=== PATIENT | female | born 1995 | race Caucasian/White ===

== ENCOUNTER 2018-07-31 03:00 | Emergency (ER) | payer BC, OTHER ==
[2018-07-31] MEDS ORDERED: ONDANSETRON HCL IV 4 MG/2 ML VIAL IV ONE (03:17)
[2018-07-31] MEDS ORDERED: FAMOTIDINE IV 20 MG/2 ML VIAL IVP ONE (03:17)
[2018-07-31] MEDS ORDERED: 0.9 % SODIUM CHLORIDE 1,000 ML BAG IV ONE ×2 (03:17→05:20)
--- NOTE | 2018-07-31 03:24 | Emergency Department Record ---
History of Present Illness - General Chief Complaint: Chest Pain Stated Complaint: CHEST PAIN Time Seen by Provider: 07/31/18 03:11 Source: Patient Mode of Arrival: Ambulatory Limitations: No limitations - History of Present Illness Initial Comments: The patient is here due to the acute onset of upper abdominal pain about 3 hours ago. The pain is sharp and stabbing and is associated with significant nausea and vomiting. She has vomited 4 or 5 times with it. The last episode was associated with possible coffee ground emesis. She does state the pain in the upper abdomen is radiating up into her chest at times and causing significant dyspnea at times. She has a long hx of similar problems and has these issues every 3-4 months which usually land her in the ER. She has been told she has a gastric emptying issue which is causing the pain. She has no hx of any abdominal surgeries, melena, BRBPR, and has had a normal LMP. MD Complaint: Other Onset/Timin -: Hour(s) Onset: After eating, During rest Pain Location: Substernal, Epigastric Severity: Moderate Severity scale (1-10): 8 Quality: Tightness Consistency: Constant, Intermittent Improves With: Nothing Worsens With: Movement Other Symptoms: Fever Treatments Prior to Arrival: None - Related Data Previous Rx's Medication Instructions Recorded Ondansetron [Zofran Odt] 4 mg SL .Q4-6H PRN #12 tab.rapdis 07/31/18 Allergies Allergy/AdvReac Type Severity Reaction Status Date / Time codeine Allergy Intermediate RASH Verified 07/31/18 04:04 acetaminophen [From Percocet] AdvReac VOMITING Verified 07/31/18 04:04 hydrocodone [From Vicodin] AdvReac VOMITING Verified 07/31/18 04:04 morphine AdvReac VOMITING Verified 07/31/18 04:04 oxycodone [From Percocet] AdvReac VOMITING Verified 07/31/18 04:04 Travel Screening - Travel/Exposure Within Last 30 Days Have you traveled within the last 30 days?: No - Travel/Exposure Within Last Year Have you traveled outside the [place] in the last year?: No - Additonal Travel Details Have you been exposed to anyone with a communicable illness?: No - Travel Symptoms Symptom Screening: None Review of Systems Constitutional: Denies: Chills, Fever Eyes: Denies: Eye discharge ENT: Denies: Congestion Respiratory: Denies: Cough, Dyspnea Past Medical History - SOCIAL HISTORY Smoking Status: Current every day smoker Alcohol Use: None Drug Use: Heavy Drug Use Detail:: Marijuana - RESPIRATORY Hx Respiratory Disorders: No - CARDIOVASCULAR Hx Cardio Disorders: No - NEURO Hx Neuro Disorders: No - GI Hx GI Disorders: Yes Comment:: rapid emptying - Hx Genitourinary Disorders: No - ENDOCRINE Hx Endocrine Disorders: No - MUSCULOSKELETAL Hx Musculoskeletal Disorders: No - PSYCH Hx Psych Problems: No - HEMATOLOGY/ONCOLOGY Hx Hematology/Oncology Disorders: No Family Medical History Any Significant Family History?: No Physical Exam - General General Appearance: Alert, Oriented x3, Cooperative, No acute distress - Head Head exam: Atraumatic, Normocephalic, Normal inspection - Eye Eye exam: Normal appearance, PERRL - Neck Neck exam: Normal inspection, Full ROM. negative: Tenderness - Respiratory Respiratory exam: Normal lung sounds bilaterally. negative: Respiratory distress - Cardiovascular Cardiovascular Exam: Regular rate, Normal rhythm, Normal heart sounds. negative : Diastolic murmur, Systolic murmur - GI/Abdominal GI/Abdominal exam: Soft, Normal bowel sounds, Tenderness (There is significant upper abdominal tenderness.). negative: Rebound, Rigid - Extremities Extremities exam: Normal inspection, Full ROM, Normal capillary refill. negative: Tenderness Course Vital Signs 07/31/18 03:02 Temperature 99.4 F Pulse Rate 110 H Respiratory 16 Rate Blood Pressure 116/66 Pulse Ox 99 - Reevaluation(s) Reevaluation #1: The patient is doing a lot better at this time. Her pain is down to a 2 and her nausea much improved. 07/31/18 03:47 Reevaluation #2: The patient is doing a lot better at this time. She is still mildly nauseated but her pain is again down to a 2 and only mildly located in the epigastric area. On exam she does still have mild epigastric tenderness to palpation. 07/31/18 04:08 Reevaluation #3: The patient is doing a lot better at this time. She was sleeping when I entered the room and denies any significant pain presently. There presently is no CP, SOB, pleuritic pain, back pain or AP. The nausea is much improved but still present mildly. She is able to get up and walk with no pain or discomfort and does feel comfortable going home. She is to only have clear liquids for 12 hours then to slowly advance her diet. She is to return to the ER for any worsening symptoms. I also did discuss the mildly elevated liver enzymes and the need for F/U. 07/31/18 05:14 07/31/18 05:21 Medical Decision Making - Data Complexity MDM Data: Labs Ordered and/or Reviewed, X-Ray Ordered and/or Reviewed, EKG Ordered and/or Reviewed - Lab Data Result diagrams: 07/31/18 03:20 07/31/18 03:20 - EKG Data -: EKG Interpreted by Me EKG: No Acute Changes, Normal EKG - Radiology Data Radiology results: Report reviewed (CT: Neg for acute changes. CXR: Neg.) Disposition Disposition: Discharge Clinical Impression: Gastroparesis Disposition: Home, Self-Care Condition: (2) Stable Instructions: Acute Nausea and Vomiting (ED) Additional Instructions: Please only have clear liquids for 12 hours then slowly advance your diet. Use the Zofran for nausea. Please see your doctor next week for recheck. Return to the ER for any worsening symptoms, pain, fever, or vomiting. Prescriptions: Ondansetron [Zofran Odt] 4 mg SL .Q4-6H PRN #12 tab.rapdis PRN Reason: Nausea Forms: Patient Portal Access Time of Disposition: 05:17 Quality - Quality Measures Quality Measures: N/A - Blood Pressure Screening View Details: Yes Does Patient Have Any of the Following: No Blood Pressure Classification: Normal BP Reading Systolic Measurement: 118 Diastolic Measurement: 68 Screening for High Blood Pressure: < Normal BP, F/U Not Required > [G8783]
[2018-07-31 03:33] LABS: HEMATOCRIT 45.7 % (35.0-47.0); HEMOGLOBIN 15.1 gm/dl (11.6-16.0); MEAN CELL VOLUME 87.2 fl (81-97); MEAN CORPUSCULAR HEMOGLOBIN 28.8 pg (27-33); MEAN PLATELET VOLUME 11.5 fl (7.4-10.4); PLATELET COUNT 195 K/uL (130-400); RED BLOOD COUNT 5.24 M/uL (3.80-5.40); RED CELL DISTRIBUTION WIDTH 14.4 % (11.5-14.5); WHITE BLOOD COUNT W/O DIFF 15.6 K/uL (4.2-12.2)
[2018-07-31 03:42] LABS: BLOOD UREA NITROGEN 18 mg/dL (6-20); CREATININE 0.8 mg/dL (0.5-0.9); EST GLOMERULAR FILTRATION RATE > 60 mL/min
[2018-07-31 03:43] LABS: TOTAL PROTEIN 6.6 g/dL (6.6-8.7)
[2018-07-31 03:45] LABS: GLUCOSE,RANDOM 101 mg/dL (74-109)
[2018-07-31] MEDS ORDERED: MAGNESIUM HYDROXIDE/AL HYDROX 30 ML, LIDOCAINE VISC 2% 15ML 15 ML PO ONE ×2 (03:46)
[2018-07-31 03:47] LABS: ALT/SGPT 61 U/L (<33)
[2018-07-31 03:48] LABS: ALBUMIN 4.3 g/dL (4.0-5.0); ALKALINE PHOSPHATASE 58 U/L (35-104); AST/SGOT 62 U/L (10.0-35.0); LIPASE 24 U/L (13-60)
[2018-07-31 03:53] LABS: BILIRUBIN,DIRECT < 0.2 mg/dL (0-0.3)
[2018-07-31] MEDS ORDERED: ONDANSETRON HCL IV 4 MG/2 ML VIAL IVP ONE (04:03)
[2018-07-31 04:12] LABS: ANISOCYTOSIS 1+; PLATELET ESTIMATE NORMAL (NORMAL)
[2018-07-31 04:41] LABS: AMPHETAMINE SCREEN URINE NOT DETECTED; BARBITURATE SCREEN URINE NOT DETECTED; BENZODIAZEPINE SCREEN URINE NOT DETECTED; COCAINE SCREEN URINE NOT DETECTED; METHADONE SCREEN URINE NOT DETECTED; METHAMPHETAMINE SCREEN NOT DETECTED; OPIATE SCREEN URINE NOT DETECTED; OXYCODONE SCREEN URINE NOT DETECTED; PHENCYCLIDINE SCREEN URINE NOT DETECTED; PROPOXYPHENE SCREEN URINE NOT DETECTED; THC SCREEN URINE DETECTED; TRICYCLIC ANTIDEPRESSANT SCRN NOT DETECTED
--- NOTE | 2018-07-31 19:56 | RADIOLOGY REPORT ---
EXAM: CHEST 2 VIEWS HISTORY: DIFFICULTY IN BREATHING. TECHNIQUE: Frontal and lateral views of the chest were performed. FINDINGS: Heart size is normal. No pulmonary vascular congestion. No infiltrate or pleural effusion. The osseous structures are normal. IMPRESSION: NEGATIVE CHEST EXAMINATION. JOB NUMBER: [id number] MTDD
--- NOTE | 2018-07-31 19:59 | CT SCAN REPORT ---
EXAM: CT SCAN ABDOMEN/PELVIS WO CONTRAST HISTORY: ABDOMINAL PAIN. TECHNIQUE: Sequential axial images were obtained from the diaphragms through the ischiorectal fossa without intravenous or oral contrast administration. FINDINGS: The visualized lung bases appear normal. The non-opacified liver, gallbladder, pancreas, and spleen appear normal. The adrenal glands and kidneys appear normal. The appendix is visualized and appears normal. The small and large bowel appears normal. The uterus and adnexal structures are normal. The urinary bladder appears normal. The osseous structures are normal. IMPRESSION: NO ACUTE ABDOMINAL OR PELVIC DISEASE PROCESS. JOB NUMBER: [id number] MTDD
== END 2018-07-31 05:57 | disposition home or self-care (01) ==
LOC: ER 03:00
DX: K31.84 Gastroparesis (principal); R11.2 Nausea with vomiting, unspecified; R06.00 Dyspnea, unspecified; R07.9 Chest pain, unspecified; F17.210 Nicotine dependence, cigarettes, uncomplicated
CPT/HCPCS: 99284 ×2; 96374; 96375; 83690; 80076; 80048; 84703; 80305; 85027; 71046; 74176; 93005; 93010; J3490; J2405; J7030